=== PATIENT | male | born 1955 | race Caucasian/White ===

== ENCOUNTER 2017-04-07 17:12 | Emergency (ER) | payer OTHER ==
[2017-04-07 17:23] VITALS: BP 127/69; PULSE 75; TEMP 97.6; BMI 23.4
--- NOTE | 2017-04-07 17:25 | PDOC ---
History of Present Illness - General History Source: Patient, Old Records Exam Limitations: No Limitations <Saúl España - Last Filed: 04/07/17 17:28> - General History Source: Patient Exam Limitations: No Limitations - History of Present Illness Initial Comments: 04/07/17 17:36 The patient is a 61-year-old male, with past medical history of Down syndrome, who presents with right eye conjunctivitis. Patient woke up this morning with right eye crusting. He does not wear glasses or contact lenses. 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 Denies other symptoms or fevers. <Jana Hernandez - Last Filed: 04/07/17 18:07> - General Chief Complaint: Eye Problem Stated Complaint: RT EYE INFECTION Time Seen by Provider: 04/07/17 17:13 Past History - Past Medical History Cardiac Disorders: Yes (VALVE DEFECT) GI Disorders: Yes (ULCERS) Thyroid Disease: Yes (HYPO) - Suicide/Smoking/Psychosocial Hx Smoking History: Never smoked Have you smoked in the past 12 months: No Hx Alcohol Use: No Drug/Substance Use Hx: No Substance Use Type: None <Saúl España - Last Filed: 04/07/17 17:28> <Jana Hernandez - Last Filed: 04/07/17 18:07> - Past Medical History Allergies/Adverse Reactions: Allergies Allergy/AdvReac Type Severity Reaction Status Date / Time No Known Allergies Allergy Verified 04/07/17 17:14 Home Medications: Ambulatory Orders Calcium Citrate/Vitamin D3 [Citracal + D Maximum Caplet] 1 each PO BID 05/15/14 Cholecalciferol (Vitamin D3) [Vitamin D] 1,000 unit PO DAILY 05/15/14 Citalopram Hydrobromide [Citalopram HBr] 20 mg PO DAILY 05/15/14 Levothyroxine [Synthroid -] 112 mcg PO DAILY 05/15/14 Memantine HCl [Namenda -] 10 mg PO BID 05/15/14 Ranitidine [Zantac -] 150 mg PO BID 05/15/14 Silodosin [Rapaflo] 8 mg PO HS 05/15/14 Tobramycin 0.3% Ophth Soln [Tobrex Ophthalmic Solution -] 1 drop OU QID #1 bottle 10/11/15 Tobramycin 0.3% Ophth Soln [Tobrex Ophthalmic Solution -] 1 drop OU Q4HWA #1 drops 04/07/17 Review of Systems - Review of Systems Able to Perform ROS?: Yes Comments:: 04/07/17 17:37 GENERAL/CONSTITUTIONAL: No fever or chills. No weakness. HEAD, EYES, EARS, NOSE AND THROAT: (+)right eye conjunctivitis. No change in vision. No ear pain or discharge. No sore throat. CARDIOVASCULAR: No chest pain or shortness of breath. RESPIRATORY: No cough, wheezing, or hemoptysis. SKIN: No rash GASTROINTESTINAL: No nausea, vomiting, diarrhea or constipation. GENITOURINARY: No dysuria, frequency, or change in urination. MUSCULOSKELETAL: No joint or muscle swelling or pain. No neck or back pain. NEUROLOGIC: No headache, vertigo, loss of consciousness, or change in strength/ sensation. ENDOCRINE: No increased thirst. No abnormal weight change. HEMATOLOGIC/LYMPHATIC: No anemia, easy bleeding, or history of blood clots. ALLERGIC/IMMUNOLOGIC: No hives or skin allergy. <Jana Hernandez - Last Filed: 04/07/17 18:07> *Physical Exam - Vital Signs Last Vital Signs Temp Pulse Resp BP Pulse Ox 97.6 F 75 20 127/69 100 04/07/17 17:13 04/07/17 17:13 04/07/17 17:13 04/07/17 17:13 04/07/17 17:13 - Physical Exam Comments: 04/07/17 17:38 GENERAL: Awake, alert, and fully oriented, in no acute distress HEAD: No signs of trauma ENT: Auricles normal inspection, hearing grossly normal, nares patent, oropharynx clear EYES: (+)Mild crusting and injection of the right sclera. Extraocular movements equal and . No foreign bodies are identified. Attempted visual acuity test but the patient is not compliant with commands secondary to down syndrome. PERRLA, EOMI, sclera anicteric, Moist mucosa. SKIN: Warm, Dry, normal turgor, no rashes or lesions noted <Jana Hernandez - Last Filed: 04/07/17 18:07> Medical Decision Making - Medical Decision Making 04/07/17 17:26 A portion of this note was documented by scribe services under my direction. I have reviewed the details of the note, within reason, and agree with the documentation with the following case summary and management plan written by me. Patient treated in the ED. Nursing notes are reviewed and incorporated into the medical decision-making. Vital signs reviewed. Vital Signs Temp Pulse Resp BP Pulse Ox 97.6 F 75 20 127/69 100 04/07/17 17:13 12 17:13 04/07/17 17:13 04/07/17 17:13 04/07/17 17:13 61-year-old male with history of Down syndrome presents with right eye conjunctivitis. This morning, woke up with some injection of the right eye with crusting. Patient does not wear glasses or contact lenses. The patient is unable to verbalize his complaints secondary to his Down syndrome. Otherwise according to the caretakers, he is acting like himself. Denies other symptoms or fevers. We attempted a visual acuity, but given his Down syndrome, patient does not follow commands. We'll prescribe tobramycin for conjunctivitis and have him follow-up with his doctor. I discussed the physical exam findings, ancillary test results and final diagnoses with the patient. I answered all of the patient's questions. The patient was satisfied with the care received and felt comfortable with the discharge plan and treatment plan. The patient will call their primary care physician within 24 hours to arrange follow-up and will return to the Emergency Department with any new, persistant or worsening symptoms. <Saúl España - Last Filed: 04/07/17 17:28> *DC/Admit/Observation/Transfer <Saúl España - Last Filed: 04/07/17 17:28> - Attestations Scribe Attestion: 04/07/17 17:39 Documentation prepared by Jana Hernandez, acting as biomedical equipment tech for Saúl España MD. <Jana Hernandez - Last Filed: 04/07/17 18:07> Diagnosis at time of Disposition: Conjunctivitis, right eye Qualifiers: Conjunctivitis type: acute Acute conjunctivitis type: viral Qualified Code(s): B30.9 - Viral conjunctivitis, unspecified - Discharge Dispostion Disposition: HOME Condition at time of disposition: Stable - Prescriptions Prescriptions: Tobramycin 0.3% Ophth Soln [Tobrex Ophthalmic Solution -] 1 drop OU Q4HWA #1 drops - Patient Instructions Printed Discharge Instructions: DI for Conjunctivitis Additional Instructions: Please take the tobramycin drops every 4 hours for the next week. Follow up with your doctor.
== END 2017-04-07 17:40 | disposition home or self-care (01) ==
LOC: FER 17:12
DX: B30.9 Viral conjunctivitis, unspecified (principal); Q90.9 Down syndrome, unspecified; E03.9 Hypothyroidism, unspecified
CPT/HCPCS: 99281-25

== ENCOUNTER 2018-05-23 11:05 | Inpatient (IN) | payer OTHER ==
--- NOTE | 2018-05-23 11:20 | PDOC ---
Attending Attestation - Resident Resident Name: Go Brizuela - HPI HPI: 05/23/18 12:50 Pt presents to the ED after brought in by facility staff for altered mental status. As per facility, patient's baseline is to be alert and oriented x 3, and ambulatory. This AM, he was found sitting on the floor by his bed. He is arousable to loud voice or pain and will withdraw to pain and follow some commands, but does not speak. - Physicial Exam PE: 05/23/18 12:57 Agree with resident exam. Patient is lethargic but arousable to pain. Lungs are clear. Abdomen soft and non distended. No signs of trauma. - Medical Decision Making 05/23/18 12:58 Pt presents to the ED with altered mental status. Lethargic on exam but non focal. Hypothermic rectally. Differential includes sepsis, less likely intracranial lesion or bleed, electrolyte disturbance. Will check labs and CXR , CT head, lactate and blood cultures and reassess.
--- NOTE | 2018-05-23 11:52 | PDOC ---
History of Present Illness - General Chief Complaint: Altered Mental Status Stated Complaint: AMS Time Seen by Provider: 05/23/18 11:10 - History of Present Illness Initial Comments: 05/23/18 11:45 62 yo M wit h h/o down Syndrome, hypothyroidism who p/w lethargy. Patient caregiver at bedside reports patient found on ground this morning sitting against bed. Noted patient to have decreased appetite this AM, and decreased activity level. Noted patient with stumbling gait, but denies witnessing fall, LOC. Patient denies POWELL, palpitations, leg pain/swelling, N/V, F,C, CP, SOB, urinary complaints, abdominal pain, diarrhea, constipation, hematuria, lightheadedness, sensory changes. PMHx: as noted above ROS: as noted SHx:Denies Etoh, tobacco, IVDA Allergies: NKDA Past History - Past Medical History Allergies/Adverse Reactions: Allergies Allergy/AdvReac Type Severity Reaction Status Date / Time No Known Allergies Allergy Verified 04/07/17 17:14 Home Medications: Ambulatory Orders Calcium Citrate/Vitamin D3 [Citracal + D Maximum Caplet] 1 each PO BID 05/15/14 Cholecalciferol (Vitamin D3) [Vitamin D] 1,000 unit PO DAILY 05/15/14 Citalopram Hydrobromide [Citalopram HBr] 20 mg PO DAILY 05/15/14 Levothyroxine [Synthroid -] 112 mcg PO DAILY 05/15/14 Memantine HCl [Namenda -] 10 mg PO BID 05/15/14 Ranitidine [Zantac -] 150 mg PO BID 05/15/14 Silodosin [Rapaflo] 8 mg PO HS 05/15/14 Tobramycin 0.3% Ophth Soln [Tobrex Ophthalmic Solution -] 1 drop OU Q4H #1 drops 04/11/17 Acetaminophen [Tylenol] 650 mg PO Q4H PRN 05/23/18 Cyanocobalamin (Vitamin B-12) [Vitamin B12] 500 mcg PO DAILY 05/23/18 Denosumab [Prolia] 60 mg SQ ASDIR 05/23/18 Doxycycline Hyclate [Morgidox] 50 mg PO BID 05/23/18 Fluticasone Prop 0.05% Nasal [Flonase -] 1 - 2 spray NS BID 05/23/18 Cardiac Disorders: Yes (VALVE DEFECT) COPD: No Dementia: Yes GI Disorders: Yes (ULCERS) Thyroid Disease: Yes (HYPO) Other medical history: Down's syndrome - Suicide/Smoking/Psychosocial Hx Smoking History: Never smoked Have you smoked in the past 12 months: No Hx Alcohol Use: No Drug/Substance Use Hx: No Substance Use Type: None Review of Systems - Review of Systems Comments:: 05/23/18 11:52 Unable to provide d/t AMS. *Physical Exam - Vital Signs Last Vital Signs Temp Pulse Resp BP Pulse Ox 95.6 F L 61 18 98/69 98 05/23/18 11:23 05/23/18 11:23 05/23/18 11:23 05/23/18 11:23 05/23/18 11:23 - Physical Exam Comments: 05/23/18 11:53 GENERAL: Awake, alert, somnolent, verbal, following commands, in no acute distress HEAD: No signs of trauma, normocephalic, atraumatic EYES: PERRLA, EOMI, sclera anicteric, conjunctiva clear ENT: Auricles normal inspection, hearing grossly normal, nares patent, oropharynx clear without exudates. Moist mucosa NECK: Normal ROM, supple, no lymphadenopathy, JVD, or masses LUNGS: No distress, speaks full sentences, clear to auscultation bilaterally HEART: Regular rate and rhythm, normal S1 and S2, no murmurs, rubs or gallops, peripheral pulses normal and equal bilaterally. ABDOMEN: Soft, nontender, normoactive bowel sounds. No guarding, no rebound. No masses. Neg CVA ttp. EXTREMITIES : Normal inspection, Normal range of motion, no edema. No clubbing or cyanosis. NEUROLOGICAL: Cranial nerves II through XII grossly intact. Normal speech, no focal sensorimotor deficits SKIN: Warm, Dry, normal turgor, no rashes or lesions noted Moderate Sedation - Procedure Monitoring Vital Signs: Procedure Monitoring Vital Signs Temperature 95.6 F L 05/23/18 11:23 Pulse Rate 61 05/23/18 11:23 Respiratory Rate 18 05/23/18 11:23 Blood Pressure 98/69 05/23/18 11:23 O2 Sat by Pulse Oximetry (%) 98 05/23/18 11:23 ED Treatment Course - LABORATORY CBC & Chemistry Diagram: 05/23/18 11:46 05/23/18 11:46 - RADIOLOGY Radiology Studies Ordered: Category Date Time Status HEAD CT WITHOUT CONTRAST [CT] Stat CT Scan 05/23/18 11:44 Ordered CHEST X-RAY PORTABLE* [RAD] Stat Radiology 05/23/18 11:41 Ordered Medical Decision Making - Medical Decision Making 05/23/18 11:52 62 yo M wit h h/o down Syndrome, hypothyroidism who p/w generalized lethargy. Patient somnolent appearing. Rectal Temp 95.6, BP 98/69, vitals otherwise wnl. Absent nuchal findings. Neuro exam intact.CTH r/o mass, hemorrhage, hemaotma, skull fracture. Will assess for infection, electrolyte abnml, metabolic and toxic derangements, acid-base disturbances, infection. 05/23/18 11:57 Ed Course : 05/23/18 13:34 Pt, with UTI 05/23/18 13:34 WBC: 9.1 LA: 2.0 Trop: Neg 05/23/18 13:35 UA: 3+ LE, Nitrite +, 218 WBC, 2 + Blood, 2+ blood, 14 RBC Ceftriaxone 1 gm 05/23/18 13:51 CTH: Unremarkable CXR: No acute pathology Patient endorsed to [facility]. Admit Dmed/surg *DC/Admit/Observation/Transfer Diagnosis at time of Disposition: UTI (urinary tract infection) Qualifiers: Urinary tract infection type: acute cystitis Hematuria presence: without hematuria Qualified Code(s): N30.00 - Acute cystitis without hematuria Hypothermia Qualifiers: Encounter type: initial encounter Qualified Code(s): T68.XXXA - Hypothermia, initial encounter Altered mental status Qualifiers: Altered mental status type: somnolence Qualified Code(s): R40.0 - Somnolence - Discharge Dispostion Condition at time of disposition: Stable Decision to Admit order: Yes - Referrals - Patient Instructions - Post Discharge Activity
[2018-05-23 12:06] LABS: VENOUS PC02 53.1 mmHg (38-52); VENOUS PH 7.35 (7.32-7.42); VENOUS PO2 37.9 mmHg (28-48)
[2018-05-23 12:13] LABS: BASO % 0.7 % (0-2.0); EOS % 0.4 % (0-4.5); HEMATOCRIT 38.3 % (35.4-49); LYMPH % 11.3 % (8-40); MCH 34.1 pg (25.7-33.7); MEAN CELL VOLUME 100.5 fl (80-96); MEAN PLT VOLUME 7.7 fl (7.5-11.1); MONO % 5.5 % (3.8-10.2); NEUT % 82.1 % (42.8-82.8); PLATELET COUNT 241 K/MM3 (134-434); RBC 3.81 M/mm3 (4.00-5.60); RDW 14.5 % (11.9-15.9); WHITE BLOOD COUNT 9.1 K/mm3 (4.0-10.0)
[2018-05-23 12:24] LABS: INR 1.1 (0.83-1.09)
[2018-05-23 12:27] LABS: ACTIVATED PTT 31.8 SECONDS (25.2-36.5)
[2018-05-23 12:39] LABS: ALBUMIN 3.2 g/dl (3.4-5.0); ALK PHOS 81 U/L (45-117); ANION GAP 7 MMOL/L (8-16); BLOOD UREA NITROGEN 18 mg/dL (7-18); CALCIUM 9.2 mg/dL (8.5-10.1); CHLORIDE 103 mmol/L (98-107); CO2 29 mmol/L (21-32); GLUCOSE,RANDOM 111 mg/dL (74-106); SGOT/AST 27 U/L (15-37); SGPT/ALT 25 U/L (13-61); SODIUM 139 mmol/L (136-145); TOT PROT 6.8 g/dl (6.4-8.2)
[2018-05-23 12:55] LABS: URINE APPEARANCE CLOUDY; URINE BILIRUBIN NEGATIVE (<2.0 mg/dL); URINE COLOR YELLOW; URINE GLUCOSE (UA) NEGATIVE (NEGATIVE); URINE KETONE NEGATIVE (NEGATIVE); URINE LEUK ESTERASE 3+ (NEGATIVE); URINE NITRITE POSITIVE (NEGATIVE); URINE PROTEIN 1+ (NEGATIVE); URINE UROBILINOGEN NEGATIVE mg/dL (0.2-1.0)
[2018-05-23 13:05] LABS: EPI CELLS RARE /HPF (FEW); YEAST RARE
[2018-05-23] MEDS ORDERED: CEFTRIAXONE 1,000 MG in DEXTROSE 5%-WATER - 50 ML IVPB ONE (13:32)
[2018-05-23] MEDS ORDERED: CEFTRIAXONE 1 GM/50 ML BAG ONE (13:42)
[2018-05-23] MEDS ORDERED: VANCOMYCIN 500 MG in DEXTROSE 5%-WATER - 100 ML IVPB ONE (16:13)
[2018-05-23] MEDS ORDERED: PIPERACILLIN/TAZOB 2.25 GM 2.25 GM in DEXTROSE 5%-WATER - 50 ML IVPB ONE (16:14)
--- NOTE | 2018-05-23 16:14 | HP ---
CHIEF COMPLAINT: more lethargic, generalized weakness, ams PCP: HISTORY OF PRESENT ILLNESS: Patient is a 62 year old male from [facility] with a significant past history of hypothyroidism and down syndrome. Patient accompanied by his STICKER ON/caregiver who states that patient was found more lethargic this morning upon awakening. He was found on the ground sitting against the bed, shivering with profound fatigue. Patient was taken down to the kitchen and ate only a few bites of breakfast. He usually is able to eat on his own and feed himself but he was unable to this morning. His gait was also off, he was noted to be stumbling around. He is reported to be normally awake, alert and able to repeat what someone says to him. He is usually oriented to person, place and time. STICKER ON further states that patient was seen at urgent care 3 weeks ago and was diagnosed with pneumonia and was put on oral antibiotics (she is unsure of which one.) She states he finished the full course of antibiotics and seemed to be doing well after. She reports that there are a few sick residents at the facility with both flu and pneumonia. ER course was notable for: (1) lactic acid neg. (2) negative chest xray (3) hypothermic and hypotensive in the ED. Recent Travel: none PAST MEDICAL HISTORY: hypothyroidism and down syndrome PAST SURGICAL HISTORY: Social History: Smoking: none Alcohol: none Drugs: none Family History: Allergies No Known Allergies Allergy (Verified 04/07/17 17:14) HOME MEDICATIONS: Home Medications Medication Instructions Recorded Calcium Citrate/Vitamin D3 1 each PO BID 05/15/14 [Citracal + D Maximum Caplet] Cholecalciferol (Vitamin D3) 1,000 unit PO DAILY 05/15/14 [Vitamin D] Citalopram Hydrobromide 20 mg PO DAILY 05/15/14 [Citalopram HBr] Levothyroxine [Synthroid -] 112 mcg PO DAILY 05/15/14 Memantine HCl [Namenda -] 10 mg PO BID 05/15/14 Ranitidine [Zantac -] 150 mg PO BID 05/15/14 Silodosin [Rapaflo] 8 mg PO HS 05/15/14 Tobramycin 0.3% Ophth Soln [Tobrex 1 drop OU Q4H #1 drops 12/11/17 Ophthalmic Solution -] Acetaminophen [Tylenol] 650 mg PO Q4H PRN 05/23/18 Cyanocobalamin (Vitamin B-12) 500 mcg PO DAILY 05/23/18 [Vitamin B12] Denosumab [Prolia] 60 mg SQ ASDIR 05/23/18 Doxycycline Hyclate [Morgidox] 50 mg PO BID 05/23/18 Fluticasone Prop 0.05% Nasal 1 - 2 spray NS BID 05/23/18 [Flonase -] PHYSICAL EXAMINATION Vital Signs - 24 hr 05/23/18 05/23/18 05/23/18 11:23 13:24 14:03 Temperature 95.6 F L 99.4 F Pulse Rate 61 Pulse Rate [ 73 Apical] Respiratory 18 18 Rate Blood Pressure 98/69 Blood Pressure 104/73 [Right Arm] O2 Sat by Pulse 98 97 Oximetry (%) GENERAL: lethargic, follows simple commands. per barrel and receiver aligner, patient is more awake and alert HEAD: Normal with no signs of trauma. EYES: Pupils equal, round and reactive to light, extraocular movements intact, sclera anicteric, conjunctiva clear. No lid lag. EARS, NOSE, THROAT: Ears normal, nares patent, oropharynx clear without exudates. dry mucous membranes. NECK: Normal range of motion, supple without lymphadenopathy, JVD, or masses. LUNGS: diminished breath sounds, anteriorly and posteriorly. some accessory muscle use noted. high 90s on pulse ox monitor. HEART: Regular rate and rhythm, ABDOMEN: soft, non tender, old healed surgical scar MUSCULOSKELETAL: Normal range of motion at all joints. No bony deformities or tenderness. No CVA tenderness. UPPER EXTREMITIES: No peripheral edema. LOWER EXTREMITIES: No peripheral edema. NEUROLOGICAL: lethargic, facial symmetry PSYCHIATRIC: calm, cooperative SKIN: Warm, dry, normal turgor, no rashes or lesions noted, normal capillary refill. Laboratory Results - last 24 hr 05/23/18 05/23/18 05/23/18 11:46 11:46 11:46 WBC 9.1 RBC 3.81 L Hgb 13.0 Hct 38.3 MCV 100.5 H MCH 34.1 H MCHC 34.0 RDW 14.5 Plt Count 241 MPV 7.7 Absolute Neuts (auto) 7.5 Neutrophils % 82.1 Lymphocytes % 11.3 Monocytes % 5.5 Eosinophils % 0.4 Basophils % 0.7 Nucleated RBC % 0 PT with INR 13.00 INR 1.10 H PTT (Actin FS) 31.8 VBG pH POC VBG pCO2 POC VBG pO2 Mixed VBG HCO3 Sodium Potassium Chloride Carbon Dioxide Anion Gap BUN Creatinine Creat Clearance w eGFR Random Glucose Lactic Acid Calcium Total Bilirubin AST ALT Alkaline Phosphatase Creatine Kinase Creatine Kinase Index CK-MB (CK-2) Troponin I Total Protein Albumin Urine Color Yellow Urine Appearance Cloudy Urine pH 7.0 Ur Specific [place] 1.011 Urine Protein 1+ H Urine Glucose (UA) Negative Urine Ketones Negative Urine Blood 2+ H Urine Nitrite Positive Urine Bilirubin Negative Urine Urobilinogen Negative Ur Leukocyte Esterase 3+ H Urine WBC (Auto) 218 Urine RBC (Auto) 14 Ur Epithelial Cells Rare Urine Yeast Rare 05/23/18 05/23/18 05/23/18 11:46 11:46 11:46 WBC RBC Hgb Hct MCV MCH MCHC RDW Plt Count MPV Absolute Neuts (auto) Neutrophils % Lymphocytes % Monocytes % Eosinophils % Basophils % Nucleated RBC % PT with INR INR PTT (Actin FS) VBG pH 7.35 POC VBG pCO2 53.1 H POC VBG pO2 37.9 Mixed VBG HCO3 28.7 H Sodium 139 Potassium 4.0 Chloride 103 Carbon Dioxide 29 Anion Gap 7 L BUN 18 Creatinine 1.0 Creat Clearance w eGFR > 60 Random Glucose 111 H Lactic Acid 2.0 Calcium 9.2 Total Bilirubin 1.0 AST 27 ALT 25 Alkaline Phosphatase 81 Creatine Kinase 276 Creatine Kinase Index 2.0 CK-MB (CK-2) 5.7 H Troponin I Total Protein 6.8 Albumin 3.2 L Urine Color Urine Appearance Urine pH Ur Specific [place] Urine Protein Urine Glucose (UA) Urine Ketones Urine Blood Urine Nitrite Urine Bilirubin Urine Urobilinogen Ur Leukocyte Esterase Urine WBC (Auto) Urine RBC (Auto) Ur Epithelial Cells Urine Yeast 05/23/18 05/23/18 11:46 14:40 WBC RBC Hgb Hct MCV MCH MCHC RDW Plt Count MPV Absolute Neuts (auto) Neutrophils % Lymphocytes % Monocytes % Eosinophils % Basophils % Nucleated RBC % PT with INR INR PTT (Actin FS) VBG pH POC VBG pCO2 POC VBG pO2 Mixed VBG HCO3 Sodium Potassium Chloride Carbon Dioxide Anion Gap BUN Creatinine Creat Clearance w eGFR Random Glucose Lactic Acid 1.3 Calcium Total Bilirubin AST ALT Alkaline Phosphatase Creatine Kinase Creatine Kinase Index CK-MB (CK-2) Troponin I < 0.02 Total Protein Albumin Urine Color Urine Appearance Urine pH Ur Specific [place] Urine Protein Urine Glucose (UA) Urine Ketones Urine Blood Urine Nitrite Urine Bilirubin Urine Urobilinogen Ur Leukocyte Esterase Urine WBC (Auto) Urine RBC (Auto) Ur Epithelial Cells Urine Yeast ASSESSMENT/PLAN: Patient is a 62 year old male from [facility] with a significant past history of hypothyroidism and down syndrome. Patient accompanied by his STICKER ON/caregiver who states that patient was found more lethargic this morning upon awakening. He was found on the ground sitting against the bed, shivering with profound fatigue. Patient was taken down to the kitchen and ate only a few bites of breakfast. He usually is able to eat on his own and feed himself but he was unable to this morning. His gait was also off, he was noted to be stumbling around. He is reported to be normally awake, alert and able to repeat what someone says to him. He is usually oriented to person, place and time. STICKER ON further states that patient was seen at urgent care 3 weeks ago and was diagnosed with pneumonia and was put on oral antibiotics (she is unsure of which one.) She states he finished the full course of antibiotics and seemed to be doing well after. She reports that there are a few sick residents at the facility with both flu and pneumonia. ID: Sepsis Possible community acquired vs. aspiration pneumonia Meets sepsis criteria on admission. found to be hypotensive, hypothermic, altered mental status. lactic acid wnl. Clinically appears weak, lungs sounds diminished with accessory muscle use. He was recently treated with PO antibotics for possible pnemonia, per STICKER ON. Discussed with ID (dr. leone) Will order: -Vancomycin x 1 -Zosyn x 1 -chest xray does not support dx of pneumonia. will order chest ct to further evaluate. -supplemental oxygen 2 liters prn -duonebs scheduled -solumedrol 40mg x 1 -urine legionella -flu swab -swab for RSV -swallow eval to rule out aspiration pneumonia UTI UA with evidence of bacterial infection. given ceftriaxone in ED. UC pending Endocrine Hypothyroidsm. continue synthroid fen ivf ns @ 83cc/hr monitor electrolytes soft diet, honey thick: upgrade as tolerated prophy SCDs Visit type - Emergency Visit Emergency Visit: Yes ED Registration Date: 05/23/18 Care time: The patient presented to the Emergency Department on the above date and was hospitalized for further evaluation of their emergent condition. - New Patient This patient is new to me today: Yes Date on this admission: 05/23/18 - Critical Care Critical Care patient: No
[2018-05-23] MEDS ORDERED: SODIUM CHLORIDE 1,000 ML IV SCH (16:15)
--- NOTE | 2018-05-23 16:17 | EKG ---
Test Reason : Blood Pressure : / mmHG Vent. Rate : 064 BPM Atrial Rate : 064 BPM P-R Int : 160 ms QRS Dur : 088 ms QT Int : 416 ms P-R-T Axes : 069 017 008 degrees QTc Int : 429 ms NORMAL SINUS RHYTHM LEFT ATRIAL ENLARGEMENT NONSPECIFIC ST ABNORMALITY ABNORMAL ECG Confirmed by MD LASHONDA, SURYA ([id number]) on 05/23/2018 4:17:14 PM Referred By: Confirmed By:SURYA GALLEGO MD
[2018-05-23] MEDS ORDERED: methylPREDNISolone NA SUCC 40 MG/1 ML VIAL IVPUSH ONE (16:46)
[2018-05-23] MEDS ORDERED: ACETAMINOPHEN 325 MG TABLET (FP) PO PRN (16:57)
[2018-05-23] MEDS ORDERED: PIPERACILLIN/TAZOB 2.25 GM 2.25 GM/50 ML BAG IVPB ONE (17:14)
[2018-05-23] MEDS ORDERED: methylPREDNISolone NA SUCC 40 MG/1 ML VIAL ONE (17:14)
[2018-05-23] MEDS ORDERED: ALBUTEROL SO4 2.5/IPRATROPIUM 0.5 INH SOL 3 ML VIAL.NEB. NEB ONE (17:14)
[2018-05-23] MEDS: ALBUTEROL SO4 2.5/IPRATROPIUM 0.5 INH SOL 3 ML VIAL.NEB. NEB SCH ×2 (17:24→20:40)
[2018-05-23] MEDS: RANITIDINE HCL 150 MG TABLET (FP) PO SCH (22:13)
[2018-05-23] MEDS: MEMANTINE HCL 10 MG TABLET (FP) PO SCH (22:13)
[2018-05-23] MEDS: TOBRAMYCIN 0.3% OPHTH SOLN 5 ML BOTTLE OU SCH (22:13)
[2018-05-24] MEDS: ALBUTEROL SO4 2.5/IPRATROPIUM 0.5 INH SOL 3 ML VIAL.NEB. NEB SCH ×6 (00:10→20:45)
[2018-05-24] MEDS: TOBRAMYCIN 0.3% OPHTH SOLN 5 ML BOTTLE OU SCH ×4 (03:50→21:55)
[2018-05-24] MEDS: LEVOTHYROXINE NA 112 MCG TABLET (FP) PO SCH (07:05)
[2018-05-24 10:41] LABS: HEMATOCRIT 35.6 % (35.4-49); HEMOGLOBIN 12.1 GM/dL (11.7-16.9); MCH 34.2 pg (25.7-33.7); MEAN CELL VOLUME 100.8 fl (80-96); MEAN PLT VOLUME 7.8 fl (7.5-11.1); PLATELET COUNT 263 K/MM3 (134-434); RBC 3.53 M/mm3 (4.00-5.60); RDW 14.6 % (11.9-15.9); WHITE BLOOD COUNT 10.3 K/mm3 (4.0-10.0)
[2018-05-24] MEDS ORDERED: cefTRIAXone SODIUM 1 GM VIAL ONE (10:51)
[2018-05-24] MEDS ORDERED: DEXTROSE 5%-WATER - 50 ML IVPB ONE (10:51)
--- NOTE | 2018-05-24 10:59 | CON.ID ---
Consult Consult Specialty:: infectious diseases Referred by:: Alessia Reason for Consultation:: pneumonia - History of Present Illness Chief Complaint: ams History of Present Illness: patient unable to give any history which is taken from the charts and the director of field service patient currently looks better and director of field service is with him 62 year old male from [facility] with a significant past history of hypothyroidism and down syndrome. Patient accompanied by his PERSONAL CARE AID/ caregiver who states that patient was found more lethargic this morning upon awakening. He was found on the ground sitting against the bed, shivering with profound fatigue. Patient was taken down to the kitchen and ate only a few bites of breakfast. He usually is able to eat on his own and feed himself but he was unable to this morning. His gait was also off, he was noted to be stumbling around. He is reported to be normally awake, alert and able to repeat what someone says to him. He is usually oriented to person, place and time. PERSONAL CARE AID further states that patient was seen at urgent care 3 weeks ago and was diagnosed with pneumonia and was put on oral antibiotics (she is unsure of which one.) She states he finished the full course of antibiotics and seemed to be doing well after. currently patient looks much better and according to the cartaker is back to himself - History Source History Provided By: Caregiver Limitations to Obtaining History: Clinical Condition - Alcohol/Substance Use Hx Alcohol Use: No - Smoking History Smoking history: Never smoked Have you smoked in the past 12 months: No Home Medications - Allergies Allergies/Adverse Reactions: Allergies Allergy/AdvReac Type Severity Reaction Status Date / Time No Known Allergies Allergy Verified 04/07/17 17:14 - Home Medications Home Medications: Ambulatory Orders Calcium Citrate/Vitamin D3 [Citracal + D Maximum Caplet] 1 each PO BID 05/15/14 Cholecalciferol (Vitamin D3) [Vitamin D] 1,000 unit PO DAILY 05/15/14 Citalopram Hydrobromide [Citalopram HBr] 20 mg PO DAILY 05/15/14 Levothyroxine [Synthroid -] 112 mcg PO DAILY 05/15/14 Memantine HCl [Namenda -] 10 mg PO BID 05/15/14 Ranitidine [Zantac -] 150 mg PO BID 05/15/14 Silodosin [Rapaflo] 8 mg PO HS 05/15/14 Tobramycin 0.3% Ophth Soln [Tobrex Ophthalmic Solution -] 1 drop OU Q4H #1 drops 04/11/17 Acetaminophen [Tylenol] 650 mg PO Q4H PRN 05/23/18 Cyanocobalamin (Vitamin B-12) [Vitamin B12] 500 mcg PO DAILY 05/23/18 Denosumab [Prolia] 60 mg SQ ASDIR 05/23/18 Doxycycline Hyclate [Morgidox] 50 mg PO BID 05/23/18 Fluticasone Prop 0.05% Nasal [Flonase -] 1 - 2 spray NS BID 05/23/18 Review of Systems Unable to obtain ROS, reason: unable Physical Exam Vital Signs: Vital Signs Temperature 97.8 F 05/24/18 05:00 Pulse Rate 88 05/24/18 05:00 Respiratory Rate 20 05/24/18 05:00 Blood Pressure 114/64 05/24/18 05:00 O2 Sat by Pulse Oximetry (%) 97 05/23/18 21:00 Constitutional: Yes: No Distress, Calm Eyes: Yes: Conjunctiva Clear Neck: Yes: Supple, Trachea Midline Cardiovascular: Yes: Regular Rate and Rhythm Respiratory: Yes: Regular, CTA Bilaterally Gastrointestinal: Yes: Normal Bowel Sounds, Soft Musculoskeletal: Yes: WNL Extremities: Yes: WNL Neurological: Yes: Alert Psychiatric: Yes: Alert Labs: CBC, BMP 05/24/18 10:00 Imaging - Results Chest X-ray: Report Reviewed, Image Reviewed Cat Scan: Report Reviewed Assessment/Plan 62 year old male from [facility] with a significant past history of hypothyroidism and down syndrome. sepsis pneumonia uti hypothyroidism plan continue ceftriaxone await for identification of the organism rest as per the team hydration
[2018-05-24] MEDS: RANITIDINE HCL 150 MG TABLET (FP) PO SCH ×2 (11:17→21:54)
[2018-05-24] MEDS: CEFTRIAXONE 1 GM in DEXTROSE 5%-WATER - 50 ML IVPB SCH (11:18)
[2018-05-24] MEDS: CHOLECALCIFEROL (VITAMIN D3) 1,000 UNIT TABLET (FP) PO SCH (11:18)
[2018-05-24] MEDS: MEMANTINE HCL 10 MG TABLET (FP) PO SCH ×2 (11:18→21:54)
[2018-05-24 11:22] LABS: ANION GAP 12 MMOL/L (8-16); BLOOD UREA NITROGEN 18 mg/dL (7-18); CALCIUM 8.5 mg/dL (8.5-10.1); CHLORIDE 109 mmol/L (98-107); CO2 24 mmol/L (21-32); GLUCOSE,RANDOM 157 mg/dL (74-106); MAGNESIUM 2.1 mg/dL (1.8-2.4); POTASSIUM 3.7 mmol/L (3.5-5.1); SODIUM 144 mmol/L (136-145)
--- NOTE | 2018-05-24 11:53 | CONSULT ---
Admitting History and Physical - Primary Care Physician PCP: Soraida Chong - Admission History of Present Illness: 62 year old male from [facility] with a significant past history of hypothyroidism and down syndrome. sepsis pneumonia uti hypothyroidism Influenza (-) Selected Entries 05/23/18 05/24/18 22:58 09:50 Breakfast 50% Supper 50% Laboratory Tests 05/24/18 10:00 WBC 10.3 H Soft diet/honey thick liquid This is my first consult with this pt. Pt has had previous swallowing evaluations and MBS. Last MBS downgraded diet from 1/4 inch to ground food. He was on ground food and thin liquid at the home, self feeding slowly, rare cough. Pt is pending a repeat MBS in a month. History Source: Medical Record, Caregiver Limitations to Obtaining History: Clinical Condition - Smoking History Smoking history: Never smoked Have you smoked in the past 12 months: No - Alcohol/Substance Use Hx Alcohol Use: No History - Admission Reason For Visit: UTI,HYPOTHERMIA,AMS - Diagnostics X-ray: Report Reviewed - General Mental Status: Awake and Alert, Able to Follow Commands Attention: Distractible, Mild Impairment Ability to Follow Directions: Fair Head/Neck Control: Good - Hearing Hearing: Normal Speech Evaluation - Communication Primary Language: VINCENTIAN Communication: Yes: Simple Responses - Speech Production Able to Make Needs Known: Yes: Moderately Impaired Intelligibility: Yes: Mildly Impaired, Moderately Impaired - Speech Characteristics Voice Loudness: Normal Voice Pitch: Yes: Normal Voice Phonatory-based Quality: Yes: Normal Speech Clarity: < 50% Nasal Resonance: Normal - Swallow Evaluation/Bedside Assessment Current Nutritional Intake: Soft, Honey Textured Liquids Oral Secretions: Yes: WFL Dentition: Yes: Missing Teeth Facial Symmetry at Rest: Symmetrical Facial Symmetry on Retraction: Symmetrical Against Resistance Opening: Normal Against Resistance Closing: Normal Lingual Movement: Symmetric Laryngeal Movement: Able to Palpate Rate of Intake: WFL Bolus Size: WFL Labial Seal: WFL Chewing: Impaired Oral Prep Time: WFL A-P Transit: WFL Timing of Swallow: WFL Coughing/Throat Clear: No Change in Voice: No Recommendations - Speech Evaluation, Impression/Plan Impression: Pt requires ground food due to missing dentition and reduced mastication efficiency. Overtly tolerates sips of thin liquid. - Disposition Discharge to: Adult Residence - Dysphagia Impressions/Plan Dysphagia Impressions: Mild Impairment, Ongoing Evaluation *Silent aspiration: cannot be R/O at bedside Dysphagia Treatment Plan: Small Bites, Clear Pocket Food, Safe Rate, 1/2 tsp. at a time, Elevate HOB during feed Recommendations: Modified Barium Swallow - Recommendations Diet Consistency: Dysphagia Minced Medication Administration: Crushed with applesauce Liquids: Thin Liquids
--- NOTE | 2018-05-24 19:01 | PN ---
Physical Exam: SUBJECTIVE: Patient seen and examined at the bedside. feels better, more alert and interactive. aide at bedside. discussed poc with aide. OBJECTIVE: chest xray and chest ct w/o evidence of pneumonia uti +, pending organism. on ceftriaxone. Vital Signs Period Temp Pulse Resp BP Sys/Campo Pulse Ox Last 24 Hr 97.7 F-97.8 F 76-103 20-20 91-114/54-64 97-97 GENERAL: patient is more awake and alert HEAD: Normal with no signs of trauma. EYES: Pupils equal, round and reactive to light, extraocular movements intact, sclera anicteric, conjunctiva clear. No lid lag. EARS, NOSE, THROAT: Ears normal, nares patent, oropharynx clear without exudates. dry mucous membranes. NECK: Normal range of motion, supple without lymphadenopathy, JVD, or masses. LUNGS: diminished breath sounds, anteriorly and posteriorly. but breathing improving overall. HEART: Regular rate and rhythm, ABDOMEN: soft, non tender, old healed surgical scar MUSCULOSKELETAL: Normal range of motion at all joints. No bony deformities or tenderness. No CVA tenderness. UPPER EXTREMITIES: No peripheral edema. LOWER EXTREMITIES: No peripheral edema. NEUROLOGICAL: facial symmetry PSYCHIATRIC: calm, cooperative SKIN: Warm, dry, normal turgor, no rashes or lesions noted, normal capillary refill. Laboratory Results - last 24 hr 05/24/18 05/24/18 10:00 10:00 WBC 10.3 H RBC 3.53 L Hgb 12.1 Hct 35.6 MCV 100.8 H MCH 34.2 H MCHC 34.0 RDW 14.6 Plt Count 263 MPV 7.8 Sodium 144 Potassium 3.7 Chloride 109 H Carbon Dioxide 24 Anion Gap 12 BUN 18 Creatinine 1.0 Creat Clearance w eGFR > 60 Random Glucose 157 H Calcium 8.5 Magnesium 2.1 Active Medications Generic Name Dose Route Start Last Admin Trade Name Freq PRN Reason Stop Dose Admin Acetaminophen 650 mg 05/23/18 16:57 Tylenol - PO Q6H PRN FEVER Albuterol/Ipratropium 1 amp 05/23/18 16:45 05/24/18 16:10 Duoneb - NEB 1 amp RQ4H JI Administration Cholecalciferol 1,000 unit 05/24/18 10:00 05/24/18 11:18 Vitamin D3 - PO 1,000 unit DAILY JI Administration Sodium Chloride 1,000 mls @ 83 mls/hr 05/23/18 16:15 05/23/18 17:24 Normal Saline - IV 83 mls/hr ASDIR JI Administration Ceftriaxone Sodium 1 gm/ 50 mls @ 100 mls/hr 05/24/18 10:00 05/24/18 11:18 Dextrose IVPB 100 mls/hr DAILY JI Administration Protocol Levothyroxine Sodium 112 mcg 05/24/18 07:00 05/24/18 07:05 Synthroid - PO 112 mcg AM JI Administration Memantine 10 mg 05/23/18 22:00 05/24/18 11:18 Namenda - PO 10 mg BID JI Administration Ranitidine HCl 150 mg 05/23/18 22:00 05/24/18 11:17 Zantac - PO 150 mg BID JI Administration Tobramycin Sulfate 1 drop 05/24/18 22:00 Tobrex Ophthalmic Solution - OU 05/30/18 16:29 BID JI ASSESSMENT/PLAN: Patient is a 62 year old male from [facility] with a significant past history of hypothyroidism and down syndrome. Patient accompanied by his SEED BUYER/caregiver who states that patient was found more lethargic on the ground sitting against the bed, shivering with profound fatigue at the facility. He was recently treated for pneumonia 3 weeks ago with oral antibiotics. ID: Sepsis Possible community acquired vs. aspiration pneumonia. chest ct and chest xray not consistent with pneumonia. He is more awake and alert today and back to his baseline and tolerating room air. Will continue ceftriaxone and await for final blood and urine cultures. Continue supplemental oxygen 2 liters prn and duonebs scheduled. Flu swab negative. Swallow evaluation done, now on n dysphasia diet. UTI UA with evidence of bacterial infection (3+ leuk, elevated wbc) given ceftriaxone in ED. continue ceftriaxone 1 gram UC pending Endocrine Hypothyroidsm. continue synthroid fen ivf ns @ 83cc/hr monitor electrolytes dysphagia, thin liquid diet. prophy SCDs Visit type - Emergency Visit Emergency Visit: Yes ED Registration Date: 05/23/18 Care time: The patient presented to the Emergency Department on the above date and was hospitalized for further evaluation of their emergent condition. - New Patient This patient is new to me today: No - Critical Care Critical Care patient: No - Discharge Referral Referred to [facility] Med [facility] No
[2018-05-24] MEDS ORDERED: PT OWN MED DRAWER 7, Y5N ONE (20:40)
[2018-05-25] MEDS: ALBUTEROL SO4 2.5/IPRATROPIUM 0.5 INH SOL 3 ML VIAL.NEB. NEB SCH ×5 (00:08→16:20)
[2018-05-25] MEDS: LEVOTHYROXINE NA 112 MCG TABLET (FP) PO SCH (06:22)
[2018-05-25] MEDS ORDERED: PT OWN MED DRAWER 7, Y5N ONE (07:05)
[2018-05-25] MEDS: TOBRAMYCIN 0.3% OPHTH SOLN 5 ML BOTTLE OU SCH ×2 (07:57→09:56)
[2018-05-25 08:11] LABS: BASO % 0.9 % (0-2.0); EOS % 0.7 % (0-4.5); HEMATOCRIT 34.6 % (35.4-49); HEMOGLOBIN 11.8 GM/dL (11.7-16.9); LYMPH % 22.9 % (8-40); MEAN PLT VOLUME 7.6 fl (7.5-11.1); NEUT % 68.5 % (42.8-82.8); PLATELET COUNT 273 K/MM3 (134-434); RBC 3.46 M/mm3 (4.00-5.60); WHITE BLOOD COUNT 8.4 K/mm3 (4.0-10.0)
[2018-05-25 08:28] LABS: ALBUMIN 3.2 g/dl (3.4-5.0); ALK PHOS 68 U/L (45-117); ANION GAP 7 MMOL/L (8-16); BILIRUBIN,TOTAL 0.5 mg/dL (0.2-1); BLOOD UREA NITROGEN 14 mg/dL (7-18); CALCIUM 7.9 mg/dL (8.5-10.1); CHLORIDE 106 mmol/L (98-107); CO2 27 mmol/L (21-32); CREATININE 0.9 mg/dL (0.55-1.3); GLUCOSE,RANDOM 88 mg/dL (74-106); SGOT/AST 18 U/L (15-37); SGPT/ALT 21 U/L (13-61); SODIUM 140 mmol/L (136-145); TOT PROT 6.7 g/dl (6.4-8.2)
[2018-05-25] MEDS ORDERED: cefTRIAXone SODIUM 1 GM VIAL ONE (09:36)
[2018-05-25] MEDS ORDERED: DEXTROSE 5%-WATER - 50 ML IVPB ONE (09:36)
[2018-05-25] MEDS: MEMANTINE HCL 10 MG TABLET (FP) PO SCH (09:55)
[2018-05-25] MEDS: CHOLECALCIFEROL (VITAMIN D3) 1,000 UNIT TABLET (FP) PO SCH (09:55)
[2018-05-25] MEDS: RANITIDINE HCL 150 MG TABLET (FP) PO SCH (09:55)
[2018-05-25] MEDS: CEFTRIAXONE 1 GM in DEXTROSE 5%-WATER - 50 ML IVPB SCH (09:56)
--- NOTE | 2018-05-25 11:42 | PN ---
Physical Exam: SUBJECTIVE: Patient seen and examined OBJECTIVE: acute metabolic enchp Vital Signs Period Temp Pulse Resp BP Sys/Campo Pulse Ox Last 24 Hr 97.6 F-99.5 F 80-103 20-20 99-122/58-71 GENERAL: The patient is awake, alert, and fully oriented, in no acute distress. HEAD: Normal with no signs of trauma. EYES: PERRL, extraocular movements intact, sclera anicteric, conjunctiva clear. No ptosis. ENT: Ears normal, nares patent, oropharynx clear without exudates, moist mucous membranes. NECK: Trachea midline, full range of motion, supple. LUNGS: Breath sounds equal, clear to auscultation bilaterally, no wheezes, no crackles, no accessory muscle use. HEART: Regular rate and rhythm, S1, S2 without murmur, rub or gallop. ABDOMEN: Soft, nontender, nondistended, normoactive bowel sounds, no guarding, no rebound, no hepatosplenomegaly, no masses. EXTREMITIES: 2+ pulses, warm, well-perfused, no edema. NEUROLOGICAL: Cranial nerves II through XII grossly intact. Normal speech, gait not observed. PSYCH: Normal mood, normal affect. SKIN: Warm, dry, normal turgor, no rashes or lesions noted Laboratory Results - last 24 hr 05/25/18 05/25/18 06:45 06:45 WBC 8.4 RBC 3.46 L Hgb 11.8 Hct 34.6 L MCV 100.0 H MCH 34.0 H MCHC 34.0 RDW 15.0 Plt Count 273 MPV 7.6 Absolute Neuts (auto) 5.7 Neutrophils % 68.5 Lymphocytes % 22.9 D Monocytes % 7.0 Eosinophils % 0.7 Basophils % 0.9 Nucleated RBC % 0 Sodium 140 Potassium 4.0 Chloride 106 Carbon Dioxide 27 Anion Gap 7 L BUN 14 Creatinine 0.9 Creat Clearance w eGFR > 60 Random Glucose 88 Calcium 7.9 L Total Bilirubin 0.5 AST 18 ALT 21 Alkaline Phosphatase 68 Total Protein 6.7 Albumin 3.2 L Active Medications Generic Name Dose Route Start Last Admin Trade Name Freq PRN Reason Stop Dose Admin Acetaminophen 650 mg 05/23/18 16:57 Tylenol - PO Q6H PRN FEVER Albuterol/Ipratropium 1 amp 05/23/18 16:45 05/25/18 11:23 Duoneb - NEB 1 amp RQ4H JI Administration Cholecalciferol 1,000 unit 05/24/18 10:00 05/25/18 09:55 Vitamin D3 - PO 1,000 unit DAILY JI Administration Sodium Chloride 1,000 mls @ 83 mls/hr 05/23/18 16:15 05/23/18 17:24 Normal Saline - IV 83 mls/hr ASDIR JI Administration Ceftriaxone Sodium 1 gm/ 50 mls @ 100 mls/hr 05/24/18 10:00 05/25/18 09:56 Dextrose IVPB 100 mls/hr DAILY JI Administration Protocol Levothyroxine Sodium 112 mcg 05/24/18 07:00 05/25/18 06:22 Synthroid - PO 112 mcg AM JI Administration Memantine 10 mg 05/23/18 22:00 05/25/18 09:55 Namenda - PO 10 mg BID JI Administration Ranitidine HCl 150 mg 05/23/18 22:00 05/25/18 09:55 Zantac - PO 150 mg BID JI Administration Tobramycin Sulfate 1 drop 05/24/18 22:00 05/25/18 09:56 Tobrex Ophthalmic Solution - OU 05/30/18 16:29 1 drop BID JI Administration ASSESSMENT/PLAN:
[2018-05-25 13:11] VITALS: BMI 24.7
--- NOTE | 2018-05-25 13:52 | PN ---
Progress Note, PYTHON DJANGO DEVELOPER - Note Progress Note: Selected Entries 05/25/18 05/25/18 05/25/18 05:56 09:41 11:42 Breakfast 100% Diet Tolerated Well Temperature 97.6 F 98.3 F Pt overtly tolerating dys chopped/thin liquid. MBS attempted today. Pt was screming and crying, too frightened although supported by grants officer. Studied canceled. Monitor po tolerance.
--- NOTE | 2018-05-25 13:58 | PN ---
Progress Note, Physician - Current Medication List Current Medications: Active Medications Acetaminophen (Tylenol -) 650 mg PO Q6H PRN PRN Reason: FEVER Albuterol/Ipratropium (Duoneb -) 1 amp NEB RQ4H [facility] Last Admin: 05/25/18 11:23 Dose: 1 amp Cholecalciferol (Vitamin D3 -) 1,000 unit PO DAILY [facility] Last Admin: 05/25/18 09:55 Dose: 1,000 unit Sodium Chloride (Normal Saline -) 1,000 mls @ 83 mls/hr IV ASDIR [facility] Last Admin: 05/23/18 17:24 Dose: 83 mls/hr Ceftriaxone Sodium 1 gm/ (Dextrose) 50 mls @ 100 mls/hr IVPB DAILY [facility]; Protocol Last Admin: 05/25/18 09:56 Dose: 100 mls/hr Levothyroxine Sodium (Synthroid -) 112 mcg PO AM [facility] Last Admin: 05/25/18 06:22 Dose: 112 mcg Memantine (Namenda -) 10 mg PO BID [facility] Last Admin: 05/25/18 09:55 Dose: 10 mg Ranitidine HCl (Zantac -) 150 mg PO BID [facility] Last Admin: 05/25/18 09:55 Dose: 150 mg Tobramycin Sulfate (Tobrex Ophthalmic Solution -) 1 drop OU BID [facility] Stop: 05/30/18 16:29 Last Admin: 05/25/18 09:56 Dose: 1 drop - Objective Vital Signs: Vital Signs Temperature 98.3 F 05/25/18 09:41 Pulse Rate 80 05/25/18 09:41 Respiratory Rate 20 05/25/18 09:41 Blood Pressure 99/67 05/25/18 09:41 O2 Sat by Pulse Oximetry (%) 96 05/25/18 09:00 Labs: CBC, BMP 05/25/18 06:45 05/25/18 06:45 INR, PTT INR 1.10 (0.83-1.09) H 05/23/18 11:46
[2018-05-25 14:35] VITALS: BP 99/60; PULSE 79; TEMP 97.8
--- NOTE | 2018-05-25 15:34 | DS ---
Physical Exam: SUBJECTIVE: Patient seen and examined at the bedside. awake, alert, back to his baseline per WOOD MACHINIST OBJECTIVE: treatement for UTI. negative for pneumonia AMS/acute metabolic ench resolved with treatment for UTI discharge on oral antibiotics for 5 more days Vital Signs Period Temp Pulse Resp BP Sys/Campo Pulse Ox Last 24 Hr 97.6 F-99.5 F 79-90 20-20 99-122/60-71 96 PHYSICAL EXAM GENERAL: patient is more awake and alert HEAD: Normal with no signs of trauma. EYES: Pupils equal, round and reactive to light, extraocular movements intact, sclera anicteric, conjunctiva clear. No lid lag. EARS, NOSE, THROAT: Ears normal, nares patent, oropharynx clear without exudates. dry mucous membranes. NECK: Normal range of motion, supple without lymphadenopathy, JVD, or masses. LUNGS: diminished breath sounds, anteriorly and posteriorly. but breathing improving overall. HEART: Regular rate and rhythm, ABDOMEN: soft, non tender, old healed surgical scar MUSCULOSKELETAL: Normal range of motion at all joints. No bony deformities or tenderness. No CVA tenderness. UPPER EXTREMITIES: No peripheral edema. LOWER EXTREMITIES: No peripheral edema. NEUROLOGICAL: facial symmetry PSYCHIATRIC: calm, cooperative SKIN: Warm, dry, normal turgor, no rashes or lesions noted, normal capillary refill. LABS Laboratory Results - last 24 hr 05/25/18 05/25/18 06:45 06:45 WBC 8.4 RBC 3.46 L Hgb 11.8 Hct 34.6 L MCV 100.0 H MCH 34.0 H MCHC 34.0 RDW 15.0 Plt Count 273 MPV 7.6 Absolute Neuts (auto) 5.7 Neutrophils % 68.5 Lymphocytes % 22.9 D Monocytes % 7.0 Eosinophils % 0.7 Basophils % 0.9 Nucleated RBC % 0 Sodium 140 Potassium 4.0 Chloride 106 Carbon Dioxide 27 Anion Gap 7 L BUN 14 Creatinine 0.9 Creat Clearance w eGFR > 60 Random Glucose 88 Calcium 7.9 L Total Bilirubin 0.5 AST 18 ALT 21 Alkaline Phosphatase 68 Total Protein 6.7 Albumin 3.2 L HOSPITAL COURSE: Date of Admission:05/23/18 Date of Discharge: 05/25/18 Patient is a 62 year old male from [facility] with a significant past history of hypothyroidism and down syndrome. Patient accompanied by his WOOD MACHINIST/caregiver who states that patient was found more lethargic on the ground sitting against the bed, shivering with profound fatigue at the facility. He was recently treated for pneumonia 3 weeks ago with oral antibiotics. ID: Sepsis, resolved. Initally thought Possible community acquired vs. aspiration pneumonia. However imaging not consistent with pneumonia. chest ct and chest xray not consistent with pneumonia. He is more awake and alert today and back to his baseline and tolerating room air. Blood cultures negative. UC with 100k ecoli. Treated with ceftriaxone. converted to Aumentin 500mg x 5 more days. Flu swab negative. Swallow evaluation done, now on a dysphasia diet. UTI UA with evidence of bacterial infection (3+ leuk, elevated wbc), treated On ceftriaxone. UC with ecoli bacteria continue augmentin 500mb bid x 5 days repeat uc outpatient once antibiotics completed neuro: Acute Metabolic Encephalopathy in the setting of UTI. resolved. mentat status back to baseline. Treated with Ceftriaxone. Initially given Vanco and zosyn in the ED when initial though was to treat pneumonia. Imaging negative for pneumonia. Endocrine Hypothyroidsm. continue synthroid stable for discharge back to facility with outpatient follow up of urine culture once antibiotics completed. Minutes to complete discharge: 60 Discharge Summary Reason For Visit: UTI,HYPOTHERMIA,AMS Current Active Problems Altered mental status (Acute) Hypothermia (Acute) UTI (urinary tract infection) (Acute) Condition: Improved - Instructions Diet, Activity, Other Instructions: Mr. Lobato: You were admitted to [facility] on 05/23/2018 and treated for a urinary tract infection with IV antibiotics of Ceftriaxone. We will be converting you to Augmentin 500mg twice daily for 5 more days for this urinary tract infection. Please continue to take this antibiotic until complete. Take with a probiotic (Bacid) to prevent stomach upset. We recommend that you continue to hydrate with at least 6 to 8 glasses of water per day. We did a chest xray and CT scan of your chest and you do not have a pneumonia. If your symptoms return or worsen, please come back to the ED. Here are our recommendations: continue the antibiotics twice per day until complete (Augmentin 500mg at 8am and 5pm until 05/30/2018). Take the Bacid (probiotic) once daily while on the antibiotics. Have a repeat urine culture done when you complete the antibiotics to assure that your infection has cleared please call me with any questions that you may have OTTO Smithpedro James @ [facility] [phone] Referrals: ON STAFF,NOT [Non Staff, Medical] - Disposition: HOME - Home Medications Comprehensive Discharge Medication List: Ambulatory Orders Calcium Citrate/Vitamin D3 [Citracal + D Maximum Caplet] 1 each PO BID 05/15/14 Cholecalciferol (Vitamin D3) [Vitamin D3] 1,000 unit PO DAILY 05/15/14 Citalopram Hydrobromide [Citalopram HBr] 20 mg PO DAILY 05/15/14 Levothyroxine [Synthroid -] 112 mcg PO DAILY 05/15/14 Memantine HCl [Namenda -] 10 mg PO BID 05/15/14 Ranitidine [Zantac -] 150 mg PO BID 05/15/14 Silodosin [Rapaflo] 8 mg PO HS 05/15/14 Tobramycin 0.3% Ophth Soln [Tobrex Ophthalmic Solution -] 1 drop OU Q4H #1 drops 04/11/17 Acetaminophen [Tylenol] 650 mg PO Q4H PRN 05/23/18 Cyanocobalamin (Vitamin B-12) [Vitamin B12] 500 mcg PO DAILY 05/23/18 Denosumab [Prolia -] 60 mg SQ ASDIR 05/23/18 Fluticasone Prop 0.05% Nasal [Flonase -] 1 - 2 spray NS BID 05/23/18 Amoxicillin/Potassium Clav [Augmentin 500-125 Tablet] 1 each PO BID #10 tablet 05/25/18 Lactobacillus Acidophilus [Bacid -] 1 each PO DAILY #5 capsule 05/25/18 This patient is new to me today: Yes Date on this admission: 05/26/18 Emergency Visit: Yes ED Registration Date: 05/23/18 Care time: The patient presented to the Emergency Department on the above date and was hospitalized for further evaluation of their emergent condition. Critical Care patient: No - Discharge Referral Referred to [facility] No
== END 2018-05-25 18:19 | disposition home or self-care (01) | DRG 871 ==
LOC: JER 11:05 → JERBED 13:52 → OBSVTOIN 16:53 → J6S 18:32 → JERBED 05-24 17:15 → J6S 05-24 17:16
PROVIDERS: ADMIT Internal Medicine; ATTEND Nurse Practitioner Family
DX: A41.9 Sepsis, unspecified organism (principal); G93.41 Metabolic encephalopathy; N39.0 Urinary tract infection, site not specified; Q90.9 Down syndrome, unspecified; R68.0 Hypothermia, not associated with low environmental temperature; E03.9 Hypothyroidism, unspecified; R41.82 Altered mental status, unspecified
CPT/HCPCS: 36415; 70450-TC; 71045-TC-FY; 71250-TC; 80048; 80053; 81003; 81015; 82550; 82553; 82803; 83605; 83735; 84484; 85025; 85027; 85610; 85730; 87040; 87086; 87186; 87804; 87899; 93005; 93010; 94640; 97116-GP; 97161-GP; 99283-25; G0378; J7030

== ENCOUNTER 2019-01-31 11:37 | Emergency (ER) | payer OTHER ==
[2019-01-31 11:47] VITALS: BMI 21.4
[2019-01-31 13:03] LABS: BASO % 0.5 % (0-2.0); EOS % 0.4 % (0-4.5); HEMATOCRIT 44.8 % (35.4-49); HEMOGLOBIN 14.9 GM/dL (11.7-16.9); LYMPH % 7.3 % (8-40); MCH 33.3 pg (25.7-33.7); MCHC 33.2 g/dl (32.0-35.9); MEAN CELL VOLUME 100.1 fl (80-96); MEAN PLT VOLUME 8.5 fl (7.5-11.1); MONO % 4.1 % (3.8-10.2); NEUT % 87.7 % (42.8-82.8); PLATELET COUNT 250 K/MM3 (134-434); RBC 4.48 M/mm3 (4.00-5.60); RDW 13.6 % (11.9-15.9); WHITE BLOOD COUNT 11.6 K/mm3 (4.0-10.0)
[2019-01-31] MEDS ORDERED: SODIUM CHLORIDE 1,000 ML IV STA (13:05)
--- NOTE | 2019-01-31 13:05 | PDOC ---
History of Present Illness - General Chief Complaint: Vomiting/Diarrhea Stated Complaint: HYPOTENSIVE/DIARRHEA Time Seen by Provider: 01/31/19 13:04 History Source: Care Provider Exam Limitations: Physical Impairment (Down's Syndrome; minimal verbal but follows commands) - History of Present Illness Initial Comments: Pt is a 63 yo M, with PMH of Down's Syndrome and hypothyroidism, who is brought by EMS from [facility] and presenting with nausea and diarrhea since 10 am today. PT is generally non-verbal, but engine specialist is at bedside. She states the pt was in usual state of health until his group activity at 10 am, in which he had multiple bouts of loose brown stool and dry-heaving. Pt ate breakfast this AM and took his medications. They took his BP which was 90s systolic, but they do not know his baseline as it is not a senior living facility. They deny any recent fevers, or blood in the BMs. Pt normally ambulates and urinates on his own. Allergies: NKDA Social: No cigarette, alcohol, or drug use. No recent travel or sick contacts. Surgical: surgery on "his stomach which was cut down in half and he has to eat smaller meals now", cholecystectomy Family: no relevant history. 01/31/19 13:31 01/31/19 14:10 01/31/19 15:03 Past History - Travel Traveled outside of the country in the last 30 days: No Close contact w/someone who was outside of country & ill: No - Past Medical History Allergies/Adverse Reactions: Allergies Allergy/AdvReac Type Severity Reaction Status Date / Time No Known Allergies Allergy Verified 01/31/19 11:47 Home Medications: Ambulatory Orders Levothyroxine [Synthroid -] 112 mcg PO DAILY 05/15/14 Silodosin [Rapaflo] 8 mg PO HS 05/15/14 Cardiac Disorders: Yes (VALVE DEFECT) COPD: No Dementia: Yes GI Disorders: Yes (ULCERS) Thyroid Disease: Yes (HYPO) - Psycho Social/Smoking Cessation Hx Smoking History: Never smoked Have you smoked in the past 12 months: No Information on smoking cessation initiated: No Hx Alcohol Use: No Drug/Substance Use Hx: No Substance Use Type: None Abd/GI Specific PMHX - Complaint Specific PMHX Other History: abd surgery for "reducing stomach size" Review of Systems - Review of Systems Able to Perform ROS?: No (limited verbal) *Physical Exam - Vital Signs Last Vital Signs Temp Pulse Resp BP Pulse Ox 98 F 68 18 111/65 100 01/31/19 11:45 01/31/19 12:38 01/31/19 12:38 01/31/19 12:38 01/31/19 12:39 - Physical Exam Comments: hypotensive (89/73 on exam), HR 70s, pt afebrile. Pt in NAD, lying comfortably on the bed. No active vomiting or diarrhea at this time. Normal body habitus. Pt alert and responsive to all commands. Pt has limited verbal ability (pt baseline). 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 Pt has asymmetry to his lower face on the L side (engine specialist states this is baseline). No midline spinal tenderness, step-offs, or crepitus. Head normocephalic, atraumatic. Eyes PERRLA, EOMI. Oropharynx without erythema or exudates, no LAD b/l. No nasal congestion. Hearing intact. Clear heart sounds, S1/S2, no JVD, b/l pedal edema, or heart murmur. Clear lung sounds, no respiratory distress, wheezes, crackles, or accessory muscle use. No abdominal or CVA tenderness to palpation, no rebound, no guarding. Abdomen soft, non-distended, and with hyperactive bowel sounds. +Large midline abdominal scar, well-healed. Skin without jaundice or rash. 01/31/19 13:34 ED Treatment Course - LABORATORY CBC & Chemistry Diagram: 01/31/19 12:40 01/31/19 12:40 Medical Decision Making - Medical Decision Making Pt was seen at bedside, also will be seen by attending Dr. Cha. Pt presenting with engine specialist for complaints of low BP, nausea, and diarrhea x1 day. Likely viral syndrome, will evaluate with labs to look for other signs of infection, electrolyte imbalances, anemia. Abdomen soft/non-distended, and was tolerating PO today with loose bowels, unlikely obstruction or perforation. PT does not drink alcohol. Provided 2 L IV NS for improvement of hydration. Will continue to reassess pt and monitor for symptomatic improvement. 01/31/19 13:36 ECG: NSR, intervals WNL. No TWIs or significant ST segment changes. No significant changes from prior ECG. CBC: WBC 11.6 with L shift Pending CMP, influenza, and urine. 01/31/19 13:39 CMP WNL Influenza negative UA negative for infection. Pt with continued loose stool and is unable to express if in pain. Will evaluate with CT abd/pelvis with IV contrast to look for appendicitis, perforation, or other abdominal pathology. 01/31/19 17:12 CT abd/pelvis: No definite CT evidence of acute diverticulitis or colitis. Mildly increased fluid is seen within the length of the colon - ? current diarrheal illness. Mild diffuse urinary bladder wall thickening is seen which may be on the basis of acute or chronic cystitis or possibly chronic outlet obstruction. Status post gastric surgery. A small to moderate amount of food material is seen within the gastric lumen - ? recent meal ingestion versus possible gastroparesis or gastric outlet obstruction. Status post cholecystectomy. Mild nonspecific common bile duct dilatation is noted which may be physiologic in nature. 01/31/19 19:43 Labs WNL other than mild WBC -- likely viral gastroenteritis Pt tolerated PO intake in the ED, unlikely gastric obstruction. Pt can f/u with PCP. Pt with engine specialist who can take him home in the emergency van. Strict return precautions provided to engine specialist with understanding. 01/31/19 19:43 Discharge - Discharge Information Problems reviewed: Yes Clinical Impression/Diagnosis: Diarrhea Qualifiers: Diarrhea type: unspecified type Qualified Code(s): R19.7 - Diarrhea, unspecified Nausea and vomiting Qualifiers: Vomiting type: unspecified Vomiting Intractability: non-intractable Qualified Code(s): R11.2 - Nausea with vomiting, unspecified Condition: Improved Disposition: PRISON FACILITY - Admission No - Follow up/Referral - Patient Discharge Instructions Patient Printed Discharge Instructions: DI for Viral Gastroenteritis -- Adult Additional Instructions: You were seen in the ER today for nausea, vomiting, and diarrhea. The results of your labs and imaging today showed a likely diarrheal illness or viral syndrome. Please follow-up with your primary care doctor within 1-2 days to discuss your visit and make sure your symptoms have improved. Please return to the ER if you have any worsening pain, development of fevers or chills, loss of consciousness, inability to tolerate food or fluids, or any other concerns. - Post Discharge Activity
[2019-01-31] MEDS ORDERED: SODIUM CHLORIDE 2,000 ML IV STA (13:10)
[2019-01-31 13:47] LABS: ALBUMIN 4.1 g/dl (3.4-5.0); BILIRUBIN,TOTAL 1.2 mg/dL (0.2-1); BLOOD UREA NITROGEN 20.8 mg/dL (7-18); CALCIUM 9.2 mg/dL (8.5-10.1); CREATININE 1.1 mg/dL (0.55-1.3); POTASSIUM 4.9 mmol/L (3.5-5.1); TOT PROT 7.8 g/dl (6.4-8.2)
--- NOTE | 2019-01-31 15:32 | PDOC ---
Documentation entered by Micki Rodriguez SCRIBE, acting as scribe for Natalie Cha MD. Natalie Cha MD: This documentation has been prepared by the Jennifer triplett Adrianna, SCRIBE, under my direction and personally reviewed by me in its entirety. I confirm that the documentation accurately reflects all work, treatment, procedures, and medical decision making performed by me. Attending Attestation - Resident Resident Name: Milvia Decker - ED Attending Attestation I have performed the following: I have examined & evaluated the patient, The case was reviewed & discussed with the resident, I agree w/resident's findings & plan, Exceptions are as noted - HPI HPI: 63 Y M, PMH of Downs Syndrome and hypothyroidism, presenting with nausea and diarrhea since earlier this morning. Patient is non-verbal, aid provides history at bedside. Aid notes the patient woke up in his normal state of health this morning, but around 10am he began dry-heaving and passing multiple loose, watery stools. Upon measuring his BP, he was ~90s systolic (unsure of baseline) . Aid notes patient was able to eat breakfast this morning, and took all of his daily medications. Allergies: NKA, NKDA Social History: Downs Syndrome. No toxic habits. - Physicial Exam PE: 01/31/19 17:18 awake alert dry mucous membranes, lungs clear bilat heart rrr no mrg abd soft multiple surgical scars. no palp hernia. llq mild ttp. no reboun no guarding. no cva tenderness. alert, moves all ext. - Medical Decision Making 01/31/19 17:19 63 yo male h/o downs syndrome here from facility with profuse diarrhea, and nausea, wretching, no vomiting. mult abd surgeries. differential colitis, diverticulitis, dehydration, electrolyte abnormality. plan ct a/p labs iv hydration. was given zofran. focused ED us ruq was perforemd. post leonidas normal cbd. Heart Score/ECG Review #1 General ECG Interpretation: Sinus Rhythm, Normal Rate (68), Normal Intervals, No acute ischemic changes
[2019-01-31 17:00] LABS: URINE APPEARANCE CLEAR; URINE BILIRUBIN NEGATIVE (NEGATIVE); URINE COLOR YELLOW; URINE GLUCOSE (UA) NEGATIVE (NEGATIVE); URINE KETONE NEGATIVE (NEGATIVE); URINE LEUK ESTERASE NEGATIVE (NEGATIVE); URINE NITRITE NEGATIVE (NEGATIVE); URINE PROTEIN NEGATIVE (NEGATIVE); URINE UROBILINOGEN 0.2 mg/dL (0.2-1.0)
[2019-01-31 20:01] VITALS: BP 110/62; PULSE 67; TEMP 97.8
--- NOTE | 2019-02-01 15:08 | EKG ---
Test Reason : Blood Pressure : / mmHG Vent. Rate : 068 BPM Atrial Rate : 068 BPM P-R Int : 156 ms QRS Dur : 084 ms QT Int : 426 ms P-R-T Axes : 082 038 026 degrees QTc Int : 452 ms POOR DATA QUALITY, INTERPRETATION MAY BE ADVERSELY AFFECTED NORMAL SINUS RHYTHM POSSIBLE LEFT ATRIAL ENLARGEMENT BORDERLINE ECG WHEN COMPARED WITH ECG OF 23-MAY-2018 11:33, NO SIGNIFICANT CHANGE WAS FOUND Confirmed by FREDI HENRY MD ([id number]) on 02/01/2019 3:08:07 PM Referred By: Confirmed By:FREDI HENRY MD
== END 2019-01-31 20:07 ==
LOC: JER 11:37
PROC: 3E0337Z Introduction of Electrolytic and Water Balance Substance into Peripheral Vein, Percutaneous Approach (ICD-10-PCS; principal; 2019-01-31)
DX: R11.2 Nausea with vomiting, unspecified (principal); R19.7 Diarrhea, unspecified; Q90.9 Down syndrome, unspecified; E03.9 Hypothyroidism, unspecified; F03.90 Unspecified dementia, unspecified severity, without behavioral disturbance, psychotic disturbance, mood disturbance, and anxiety; K25.9 Gastric ulcer, unspecified as acute or chronic, without hemorrhage or perforation; I51.9 Heart disease, unspecified
CPT/HCPCS: 36415; 74177-TC; 80053; 81003; 85025; 87086; 87804; 93005; 93010; 99284-25; J7030

== ENCOUNTER 2019-02-04 22:34 | Emergency (ER) | payer OTHER ==
[2019-02-04 22:59] VITALS: BP 99/51; PULSE 64; TEMP 97.9; BMI 60.2
--- NOTE | 2019-02-05 00:23 | PDOC ---
History of Present Illness - General Chief Complaint: Injury Stated Complaint: FALL Time Seen by Provider: 02/05/19 00:23 History Source: Care Provider - History of Present Illness Initial Comments: 02/05/19 00:42 63M with hx Down's syndrome, recent evaluation for diarrheal disease, presenting after a fall in his facility. He is non-verbal and the aid reports his history. Past History - Past Medical History Allergies/Adverse Reactions: Allergies Allergy/AdvReac Type Severity Reaction Status Date / Time No Known Allergies Allergy Verified 01/31/19 11:47 Home Medications: Ambulatory Orders Levothyroxine [Synthroid -] 112 mcg PO DAILY 05/15/14 Silodosin [Rapaflo] 8 mg PO HS 05/15/14 Cardiac Disorders: Yes (VALVE DEFECT) COPD: No Dementia: Yes GI Disorders: Yes (ULCERS) Thyroid Disease: Yes (HYPO) - Psycho Social/Smoking Cessation Hx Smoking History: Never smoked Have you smoked in the past 12 months: No Hx Alcohol Use: No Drug/Substance Use Hx: No Substance Use Type: None *Physical Exam - Vital Signs Last Vital Signs Temp Pulse Resp BP Pulse Ox 97.9 F 64 16 99/51 L 98 02/04/19 22:55 02/04/19 22:55 02/04/19 22:55 02/04/19 22:55 02/04/19 22:55
--- NOTE | 2019-02-05 01:01 | PDOC ---
Attending Attestation - Resident Resident Name: Alex Treviño - ED Attending Attestation I have performed the following: I have examined & evaluated the patient, The case was reviewed & discussed with the resident, I agree w/resident's findings & plan - HPI HPI: 02/05/19 01:57 Pt comes with fall at his facility; witnessed. Fell onto sacrum; may have injured pelvis. Pt cannot talk and express himself. He was sent for eval. No head trauma. - Physicial Exam PE: 02/05/19 01:58 Agree with resident exam. Pt is able to range his legs bilaterally; pt seems to have a little sacral pain. Otherwise normal exam - Medical Decision Making 02/05/19 01:[address] pelvis ordered. If all is normal, he will be sent back to the [place]. 02/05/19 03:12 Patient Name: EBONY DUPONT THIS IS A PRELIMINARY REPORT FROM [facility] DATE OF SERVICE: 2019-02-05 01:29:48 IMAGES: [id number] EXAM: CT PELVIS WITHOUT INTRAVENOUS CONTRAST. HISTORY: Fall. COMPARISON: None. FINDINGS: 1. There is no acute bony fracture deformity or acute bony dislocation. 2. Question mild bladder wall thickening versus under distention. Underlying cystitis cannot be excluded. 3. No significant pelvic free fluid. 4. There is nonspecific asymmetric thickening of the left inguinal canal when compared to the right. Given history of trauma, a small amount of blood within the left inguinal canal cannot be excluded. Recommend clinical correlation
[2019-02-05] MEDS ORDERED: LIDOCAINE 5% TOPICAL PATCH TP ONE (01:16)
[2019-02-05] MEDS ORDERED: LIDOCAINE PATCH REMOVAL MC SCH (22:00)
== END 2019-02-05 04:10 | disposition home or self-care (01) ==
LOC: JER 22:34
DX: M54.5 Low back pain (principal); W18.30XA Fall on same level, unspecified, initial encounter; Y93.89 Activity, other specified; Y92.098 Other place in other non-institutional residence as the place of occurrence of the external cause; Y99.8 Other external cause status; E03.9 Hypothyroidism, unspecified; Q90.9 Down syndrome, unspecified; Z86.79 Personal history of other diseases of the circulatory system
CPT/HCPCS: 72192-TC; 99281-25

== ENCOUNTER 2020-08-05 21:28 | Emergency (ER) | payer OTHER ==
[2020-08-05 21:36] VITALS: TEMP 98.4; BMI 23.6
[2020-08-06 02:06] VITALS: BP 126/78; PULSE 61
== END 2020-08-06 02:06 | disposition home or self-care (01) ==
LOC: JER 21:28
DX: S09.90XA Unspecified injury of head, initial encounter (principal)
CPT/HCPCS: 70450-TC; 72125-TC; 99284-25

== ENCOUNTER 2021-12-11 18:44 | Emergency (ER) | payer OTHER ==
[2021-12-11 18:58] VITALS: BP 127/74; PULSE 58; RESP 18; TEMP 98.3; BMI 26.4
== END 2021-12-11 19:27 | disposition home or self-care (01) ==
LOC: FER 18:44
DX: S00.11XA Contusion of right eyelid and periocular area, initial encounter (principal); D69.2 Other nonthrombocytopenic purpura; Y04.0XXA Assault by unarmed brawl or fight, initial encounter
CPT/HCPCS: 99281-25

== ENCOUNTER 2022-01-18 10:57 | Emergency (ER) | payer OTHER ==
[2022-01-18 11:22] VITALS: BP 109/67; PULSE 68; RESP 17; TEMP 98.6; BMI 22.6
== END 2022-01-18 14:06 | disposition home or self-care (01) ==
LOC: JERFT 10:57
DX: S09.93XA Unspecified injury of face, initial encounter (principal); S05.11XA Contusion of eyeball and orbital tissues, right eye, initial encounter; W50.0XXA Accidental hit or strike by another person, initial encounter
CPT/HCPCS: 70450-TC; 70486-TC; 72125-TC; 93005; 93010; 99285-25

== ENCOUNTER 2022-09-14 10:36 | Emergency (ER) | payer OTHER ==
[2022-09-14 11:12] VITALS: BP 118/64; PULSE 56; RESP 18; TEMP 97.8; BMI 26.2
== END 2022-09-14 12:17 | disposition home or self-care (01) ==
LOC: FER 10:36
DX: M25.561 Pain in right knee (principal)
CPT/HCPCS: 73562-TC-RT-FY; 99283-25

== ENCOUNTER 2023-11-08 14:51 | Emergency (ER) | payer OTHER ==
[2023-11-08 14:57] VITALS: BP 112/59; PULSE 64; RESP 18; TEMP 98.2; BMI 30.4
[2023-11-08] MEDS ORDERED: AMOX TR/POT CLAV 875MG/125MG TABLETS (FP) ONE (16:06)
[2023-11-08] MEDS: AMOX TR/POT CLAV 875MG/125MG TABLETS (FP) PO ONE (16:17)
[2023-11-08] MEDS: OFLOXACIN 0.3% OTIC SOLUTION 5 ML BOTTLE AD ONE (16:20)
== END 2023-11-08 16:28 | disposition home or self-care (01) ==
LOC: JERFT 14:51
DX: H60.391 Other infective otitis externa, right ear (principal); H60.11 Cellulitis of right external ear
CPT/HCPCS: 99283-25